=== PATIENT | female | born 1985 | race Two or more races ===

== ENCOUNTER 2019-01-24 18:45 | Emergency (ER) | payer BC, OTHER ==
[~2019-01-24] VITALS: Ht 149.9 cm; Wt 78.9 kg
[~2019-01-24 18:45] MED LIST: OXYC1TAB15 PO
--- NOTE | 2019-01-24 19:21 | PHYS DOC ---
Adult General Chief Complaint Chief Complaint: ABDOMINAL PAIN HPI HPI Patient is a 33 year old female who presented to ER today for evaluation of lower abdominal pain started about 4 days ago. She said the pain became more severe today after she started having her period. She denies any fever. Patient went to see her [facility] doctor today who put her on some ibuprofen and ordered pelvic ultrasound somehow she came to the ER today for evaluation after she left her [facility] doctor clinic. Review of Systems Review of Systems Constitutional: Denies fever or chills [] Eyes: Denies change in visual acuity, redness, or eye pain [] HENT: Denies nasal congestion or sore throat [] Respiratory: Denies cough or shortness of breath [] Cardiovascular: No additional information not addressed in HPI [] GI: Positive for abdominal pain, nausea, NO vomiting, bloody stools or diarrhea [] : Denies dysuria or hematuria. Patient is on her period. Musculoskeletal: Denies back pain or joint pain [] Integument: Denies rash or skin lesions [] Neurologic: Denies headache, focal weakness or sensory changes [] Endocrine: Denies polyuria or polydipsia [] All other systems were reviewed and found to be within normal limits, except as documented in this note. Current Medications Current Medications Current Medications Medications (Trade) Dose Ordered Sig/Sivan Start Time Stop Time Status Last Admin Dose Admin Fentanyl Citrate (Fentanyl 2ml Vial) 50 mcg 1X ONCE 01/24/19 23:15 01/24/19 23:26 DC 01/24/19 23:22 50 MCG Iohexol (Omnipaque 300 Mg/ml) 75 ml 1X ONCE 01/24/19 21:00 01/24/19 21:01 DC 01/24/19 21:09 75 ML Ketorolac Tromethamine (Toradol 30mg Vial) 30 mg 1X ONCE 01/25/19 00:15 01/25/19 00:45 DC 01/25/19 00:26 30 MG Piperacillin Sod/ Tazobactam Sod 3.375 gm/Sodium Chloride 50 ml @ 100 mls/hr 1X ONCE 01/24/19 21:15 01/24/19 21:44 DC 01/24/19 21:53 100 MLS/HR Allergies Allergies Allergies Coded Allergies Type Severity Reaction Last Updated Verified No Known Drug Allergies 11/15/14 No Physical Exam Physical Exam Constitutional: Well developed, well nourished, no acute distress, non-toxic appearance. [] HENT: Normocephalic, atraumatic, bilateral external ears normal, oropharynx moist, no oral exudates, nose normal. [] Eyes: PERRLA, EOMI, conjunctiva normal, no discharge. [] Neck: Normal range of motion, no tenderness, supple, no stridor. [] Cardiovascular:Heart rate regular rhythm, no murmur [] Lungs & Thorax: Bilateral breath sounds clear to auscultation [] Abdomen: Bowel sounds normal, soft, There is tenderness to palpation in RLQ, SUPRAPUBIC AND LLQ AREA, NO REBOUND, NO GUARDING, no masses, no pulsatile masses. [] Skin: Warm, dry, no erythema, no rash. [] Back: No tenderness, no CVA tenderness. [] Extremities: No tenderness, no cyanosis, no clubbing, ROM intact, no edema. [] Neurologic: Alert and oriented X 3, normal motor function, normal sensory function, no focal deficits noted. [] Psychologic: Affect normal, judgement normal, mood normal. [] Current Patient Data Vital Signs Vital Signs Date Time Temp Pulse Resp B/P (MAP) Pulse Ox O2 Delivery O2 Flow Rate FiO2 01/24/19 23:22 18 97 Room Air 01/24/19 22:00 70 105/63 (77) 01/24/19 19:15 99.1 99.1 Lab Values Laboratory Tests Test 01/24/19 18:58 01/24/19 19:22 01/24/19 19:55 01/24/19 20:37 Urine Collection Type Unknown Urine Color Red Urine Clarity Cloudy Urine pH 6.0 Urine Specific [place] >=1.030 Urine Protein 100 mg/dL (NEG-TRACE) Urine Glucose (UA) Negative mg/dL (NEG) Urine Ketones (Stick) 15 mg/dL (NEG) Urine Blood Large (NEG) Urine Nitrite Negative (NEG) Urine Bilirubin Moderate (NEG) Urine Urobilinogen Dipstick 1.0 mg/dL (0.2 mg/dL) Urine Leukocyte Esterase Small (NEG) Urine RBC Tntc /HPF (0-2) Urine WBC 5-10 /HPF (0-4) Urine Squamous Epithelial Cells Few /LPF Urine Bacteria 0 /HPF (0-FEW) Urine Mucus Mod /LPF White Blood Count 18.1 x10^3/uL (4.0-11.0) H Red Blood Count 4.31 x10^6/uL (3.50-5.40) Hemoglobin 12.4 g/dL (12.0-15.5) Hematocrit 37.2 % (36.0-47.0) Mean Corpuscular Volume 86 fL (79-100) Mean Corpuscular Hemoglobin 29 pg (25-35) Mean Corpuscular Hemoglobin Concent 33 g/dL (31-37) Red Cell Distribution Width 13.2 % (11.5-14.5) Platelet Count 227 x10^3/uL (140-400) Neutrophils (%) (Auto) 83 % (31-73) H Lymphocytes (%) (Auto) 10 % (24-48) L Monocytes (%) (Auto) 6 % (0-9) Eosinophils (%) (Auto) 0 % (0-3) Basophils (%) (Auto) 0 % (0-3) Neutrophils # (Auto) 15.0 x10^3/uL (1.8-7.7) H Lymphocytes # (Auto) 1.8 x10^3/uL (1.0-4.8) Monocytes # (Auto) 1.1 x10^3/uL (0.0-1.1) Eosinophils # (Auto) 0.1 x10^3/uL (0.0-0.7) Basophils # (Auto) 0.0 x10^3/uL (0.0-0.2) Segmented Neutrophils % 79 % (35-66) H Band Neutrophils % 4 % (0-9) Lymphocytes % 13 % (24-48) L Monocytes % 4 % (0-10) Platelet Estimate Adequate (ADEQUATE) Prothrombin Time 13.7 SEC (11.7-14.0) Prothrombin Time INR 1.1 (0.8-1.1) Activated Partial Thromboplast Time 27 SEC (24-38) Sodium Level 139 mmol/L (136-145) Potassium Level 3.9 mmol/L (3.5-5.1) Chloride Level 104 mmol/L (98-107) Carbon Dioxide Level 23 mmol/L (21-32) Anion Gap 12 (6-14) Blood Urea Nitrogen 8 mg/dL (7-20) Creatinine 0.6 mg/dL (0.6-1.0) Estimated GFR (Cockcroft-Gault) 116.6 BUN/Creatinine Ratio 13 (6-20) Glucose Level 100 mg/dL (70-99) H Calcium Level 8.3 mg/dL (8.5-10.1) L Total Bilirubin 0.3 mg/dL (0.2-1.0) Aspartate Amino Transferase (AST) 13 U/L (15-37) L Alanine Aminotransferase (ALT) 18 U/L (14-59) Alkaline Phosphatase 72 U/L (46-116) Total Protein 7.9 g/dL (6.4-8.2) Albumin 3.5 g/dL (3.4-5.0) Albumin/Globulin Ratio 0.8 (1.0-1.7) L Lipase 172 U/L (73-393) POC Urine HCG, Qualitative Hcg negative (Negative) Laboratory Tests 01/24/19 19:22 Laboratory Tests 01/24/19 19:55 EKG EKG [] Radiology/Procedures Radiology/Procedures [][facility] [address] [place] [address] IMAGING REPORT Signed PATIENT: MAXIMO WESTFALL ACCOUNT: [id number] : 1985 LOCATION: ER AGE: 33 SEX: F EXAM STATUS: REG ER ORD. PHYSICIAN: AMANDA QUIROS DO REASON: right side pelvic pain PROCEDURE: PELVIS W/TV Pelvic ultrasound to include transabdominal and transvaginal imaging 01/24/2019 CLINICAL HISTORY: Left adnexal pain. Left adnexal mass seen on recent CT scan. TECHNIQUE: Using the distended urinary bladder as a sonographic window, a real-time ultrasound examination of the pelvis was performed. Additionally in an attempt to better evaluate the uterus and adnexa, a transvaginal ultrasound study was performed. Multiple images were obtained. FINDINGS: The uterus is within normal limits in size and echogenicity. It measures 9.6 x 6.1 x 6.0 cm in longitudinal, transverse, and AP dimensions. The endometrial echo complex measures 9 mm in thickness which is within normal limits. No focal abnormality of the uterus is seen. The right ovary is normal in size and echogenicity. It measures 3.1 x 2.5 x 2.3 cm in size. A complex mass is seen in the left adnexa which measures 4.0 x 3.6 x 3.5 cm in size cm. This corresponds to the abnormality seen on patients CT scan. Its ultrasound and CT appearance are consistent with a dermoid cyst/teratoma. Normal color-flow and pulse Doppler imaging to both ovaries is seen. No free fluid is noted. 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 Otherwise negative study. Electronically signed by: Chris Romeo MD (01/24/2019 11:46 PM) [facility] DICTATED and SIGNED BY: CHRIS ROMEO MD DATE: 01/24/19 2346 [facility] [address] [place] [address] IMAGING REPORT Signed PATIENT: MAXIMO WESTFALL ACCOUNT: [id number] : 1985 LOCATION: ER AGE: 33 SEX: F EXAM STATUS: REG ER ORD. PHYSICIAN: AMANDA QUIROS DO REASON: LLQ abdominal pain PROCEDURE: CT ABD PELV W/ IV CONTRST ONLY ADDENDUM Addendum: Please note that the adnexal mass is within the left adnexa. Electronically signed by: Chris Romeo MD (01/24/2019 10:43 PM) [facility] DICTATED AND SIGNED BY: CHRIS ROMEO MD DATE: 01/24/19 2245 CC: MIGDALIA CHAVARRIA MD; AMANDA QUIROS DO ~ Exam: CT abdomen and pelvis with contrast INDICATION: Left lower quadrant pain TECHNIQUE: Sequential axial images through the abdomen and pelvis obtained following the administration of 75 mL of Omni 300 IV contrast. Sagittal and coronal reformatted images were reconstructed from the axial data and reviewed. Comparisons: None FINDINGS: Heart size is normal. No pericardial effusion. Visualized lung bases are clear. No pleural effusion. Liver, spleen, pancreas, gallbladder and adrenals are unremarkable. Kidneys demonstrate symmetric and spine. No perinephric inflammation or hydronephrosis. No renal or ureteral calculi are identified. Bladder is partially distended and appears thin-walled. Uterus is not enlarged. Within the right adnexa there is a 4.2 x 3.7 cm mass which contains fat and calcifications. Large and small bowel are unremarkable. Appendix is normal. No free intra-abdominal air or fluid. No obstruction. Abdominal aorta has a normal course and caliber. Abdominal vasculature is patent. No enlarged abdominal lymph nodes are identified. No suspicious osseous lesions or acute fractures. IMPRESSION: 1. Right adnexal lesion measuring 4.2 x 3.8 cm which contains fat and calcifications. This is favored represent either an ovarian dermoid or teratoma. Given pain further evaluation with ultrasound is recommended. 2. Otherwise, unremarkable evaluation of the abdomen and pelvis. Exposure: One or more of the following in the visualized dose reduction techniques were utilized for this examination: 1. Automated exposure control 2. Adjustment of the MA and/or KV according to patient size 3. Use of iterative of reconstructive technique Electronically signed by: Radha Loco MD (01/24/2019 9:38 PM) [facility] [place] DICTATED and SIGNED BY: RADHA LOCO MD DATE: 01/24/192137 Course & Med Decision Making Course & Med Decision Making Pertinent Labs and Imaging studies reviewed. (See chart for details) Patient is currently on her period. 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 Patient was given a total of 100 mcg of Fentanyl iv and 30 mg of toradol iv in the ER. Patient was found to have UTI. She was given a dose of zosyn iv in the ER. Patient will need to follow up with her [employer] doctor again for reevaluation. She already had a prescription from her [facility] [facility] doctor for IBUPROFEN. She will be discharged home with tramadol to take with ibuprofen as needed for pain. Dragon Disclaimer Dragon Disclaimer This electronic medical record was generated, in whole or in part, using a voice recognition dictation system. Departure Departure Impression: Primary Impression: Ovarian cyst Additional Impression: UTI (urinary tract infection) Disposition: HOME, SELF-CARE Condition: IMPROVED Referrals: MIGDALIA CHAVARRIA MD (PCP) FOLLOW UP WITH YOUR DOCTOR THIS WEEK FOR REEVALUATION. Patient Instructions: Ovarian Cyst, Urinary Tract Infection Scripts Cephalexin (CEPHALEXIN) 500 Mg Tablet 1 TAB PO QID, #28 TAB Prov: AMANDA QUIROS DO 01/25/19 Tramadol Hcl (TRAMADOL HCL) 50 Mg Tablet 50 MG PO Q6HRS PRN for PAIN, #12 TAB Prov: AMANDA QUIROS DO 01/25/19 Problem Qualifiers AMANDA QUIROS DO Jan 24, 2019 19:21
[2019-01-24 19:29] LABS: BILIRUBIN,URINE MODERATE (NEG); CLARITY,URINE CLOUDY; COLOR,URINE RED; NITRITE,URINE NEGATIVE (NEG); PROTEIN,URINE 100 mg/dL (NEG-TRACE)
[2019-01-24 19:35] LABS: BACTERIA,URINE 0 /HPF (0-FEW); RBC,URINE TNTC /HPF (0-2); SQUAMOUS EPITHELIAL CELL,UR FEW /LPF
[2019-01-24 19:37] LABS: BASO % 0 % (0-3); EOS # 0.1 x10^3/uL (0.0-0.7); EOS % 0 % (0-3); HEMATOCRIT 37.2 % (36.0-47.0); HEMOGLOBIN 12.4 g/dL (12.0-15.5); LYMPH # 1.8 x10^3/uL (1.0-4.8); LYMPH % 10 % (24-48); MEAN CORPUSCULAR HEMOGLOBIN 29 pg (25-35); MEAN CORPUSCULAR HGB CONC 33 g/dL (31-37); MEAN CORPUSCULAR VOLUME 86 fL (79-100); MONO # 1.1 x10^3/uL (0.0-1.1); MONO % 6 % (0-9); NEUT % 83 % (31-73); PLATELET COUNT 227 x10^3/uL (140-400); RED BLOOD COUNT 4.31 x10^6/uL (3.50-5.40); RED CELL DISTRIBUTION WIDTH 13.2 % (11.5-14.5); WHITE BLOOD COUNT 18.1 x10^3/uL (4.0-11.0)
[2019-01-24 19:47] LABS: PROTHROMBIN TIME PATIENT 13.7 SEC (11.7-14.0)
[2019-01-24 20:02] LABS: % BANDS 4 % (0-9); % LYMPHS 13 % (24-48); % MONOS 4 % (0-10); % SEGS 79 % (35-66)
[2019-01-24 20:03] LABS: PLT ESTIMATE ADEQUATE (ADEQUATE)
[2019-01-24 20:17] LABS: CALCIUM 8.3 mg/dL (8.5-10.1); CREATININE 0.6 mg/dL (0.6-1.0); GFR 116.6; POTASSIUM 3.9 mmol/L (3.5-5.1)
[2019-01-24 20:22] LABS: ALBUMIN 3.5 g/dL (3.4-5.0); ALBUMIN/GLOBULIN RATIO 0.8 (1.0-1.7); TOTAL BILIRUBIN 0.3 mg/dL (0.2-1.0); TOTAL PROTEIN 7.9 g/dL (6.4-8.2)
[2019-01-24] MEDS ORDERED: fentaNYL PF VIAL 100 MCG/2 ML VIAL IV ONE ×2 (20:30→23:15)
[2019-01-24] MEDS ORDERED: IOHEXOL 300 MG/ML 100ML VIAL. IV ONE (21:00)
[2019-01-24] MEDS ORDERED: PIPERACILLIN/TAZOBACTAM 3.375 GM in IV NORMAL SALINE 50ML 50 ML IV ONE (21:15)
--- NOTE | 2019-01-24 21:40 | RAD ---
Exam: CT abdomen and pelvis with contrast INDICATION: Left lower quadrant pain TECHNIQUE: Sequential axial images through the abdomen and pelvis obtained following the administration of 75 mL of Omni 300 IV contrast. Sagittal and coronal reformatted images were reconstructed from the axial data and reviewed. Comparisons: None FINDINGS: Heart size is normal. No pericardial effusion. Visualized lung bases are clear. No pleural effusion. Liver, spleen, pancreas, gallbladder and adrenals are unremarkable. Kidneys demonstrate symmetric and spine. No perinephric inflammation or hydronephrosis. No renal or ureteral calculi are identified. Bladder is partially distended and appears thin-walled. Uterus is not enlarged. Within the right adnexa there is a 4.2 x 3.7 cm mass which contains fat and calcifications. Large and small bowel are unremarkable. Appendix is normal. No free intra-abdominal air or fluid. No obstruction. Abdominal aorta has a normal course and caliber. Abdominal vasculature is patent. No enlarged abdominal lymph nodes are identified. No suspicious osseous lesions or acute fractures. IMPRESSION: 1. Right adnexal lesion measuring 4.2 x 3.8 cm which contains fat and calcifications. This is favored represent either an ovarian dermoid or teratoma. Given pain further evaluation with ultrasound is recommended. 2. Otherwise, unremarkable evaluation of the abdomen and pelvis. Exposure: One or more of the following in the visualized dose reduction techniques were utilized for this examination: 1. Automated exposure control 2. Adjustment of the MA and/or KV according to patient size 3. Use of iterative of reconstructive technique Electronically signed by: Radha Cano MD (01/24/2019 9:38 PM) [facility]
--- NOTE | 2019-01-24 23:49 | RAD ---
Pelvic ultrasound to include transabdominal and transvaginal imaging 01/24/2019 CLINICAL HISTORY: Left adnexal pain. Left adnexal mass seen on recent CT scan. TECHNIQUE: Using the distended urinary bladder as a sonographic window, a real-time ultrasound examination of the pelvis was performed. Additionally in an attempt to better evaluate the uterus and adnexa, a transvaginal ultrasound study was performed. Multiple images were obtained. FINDINGS: The uterus is within normal limits in size and echogenicity. It measures 9.6 x 6.1 x 6.0 cm in longitudinal, transverse, and AP dimensions. The endometrial echo complex measures 9 mm in thickness which is within normal limits. No focal abnormality of the uterus is seen. The right ovary is normal in size and echogenicity. It measures 3.1 x 2.5 x 2.3 cm in size. A complex mass is seen in the left adnexa which measures 4.0 x 3.6 x 3.5 cm in size cm. This corresponds to the abnormality seen on patients CT scan. Its ultrasound and CT appearance are consistent with a dermoid cyst/teratoma. Normal color-flow and pulse Doppler imaging to both ovaries is seen. No free fluid is noted. 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 Otherwise negative study. Electronically signed by: Chris Romeo MD (01/24/2019 11:46 PM) [facility]
[2019-01-25] MEDS ORDERED: KETOROLAC 30 MG/ML VIAL. IV ONE (00:15)
[2019-01-25] MEDS ORDERED: CEPH500T PO (00:18)
[2019-01-25] MEDS ORDERED: TRAM50TA PO (00:18)
[2019-01-25 00:45] VITALS: BP 95/59
== END 2019-01-25 00:46 | disposition home or self-care (01) ==
LOC: ER 18:45
DX: N83.201 Unspecified ovarian cyst, right side (principal); N39.0 Urinary tract infection, site not specified
CPT/HCPCS: 36415; 74177; 76830; 76856; 80053; 81001; 81025; 83690; 85007; 85025; 85610; 85730; 87086; 96365; 96375; 96376; 99285; J1885; J2543; J3010; Q9967